=== PATIENT | female | born 1930 | race Caucasian/White ===

== ENCOUNTER 2016-12-13 22:54 | Emergency (ER) | payer OTHER ==
[~2016-12-13] VITALS: Ht 152.4 cm; Wt 39.9 kg
[~2016-12-13 22:54] MED LIST: AMLODIPINE BESY PO; CALCIUM + D 6001 TAB PO; CITALOPRAM20 MG PO; DONEPEZIL HCL10 MG PO; LOTREL 5 MG-101 CAP PO; MAGNESIUM OXID400 MG PO; MULTIVITAMIN1 TAB PO; NAMENDA XR21 MG PO; NAMENDA10 MG PO; VITAMIN C500 M3 PO
--- NOTE | 2016-12-13 23:03 | ED MVC/FALL/TRAUMA COMPLAINT ---
History of Present Illness General Chief Complaint: Fall Stated Complaint: BIBA FOR FALL Source: patient, old records, EMS Exam Limitations: dementia Vital Signs & Intake/Output Vital Signs & Intake/Output Vital Signs Date Time Temp Pulse Resp B/P Pulse O2 O2 Flow FiO2 Ox Delivery Rate 12/13 2313 100 Room Air 12/13 2302 97.0 58 18 118/60 100 Room Air ED Intake and Output 12/14 0000 12/13 1200 Intake Total 0 Output Total Balance 0 Intake, Oral 0 Patient 88 lb Weight Allergies Coded Allergies: NO KNOWN ALLERGIES (10/13/11) Reconcile Medications Amlodipine/Valsartan (Amlodipine-Valsartan 5-160 MG) 5 MG-160 MG TABLET 1 TAB PO DAILY BP (Reported) Calcium Carbonate/Vitamin D3 (Caltrate 600 + D Tablet) (Unknown Strength) TABLET (Unknown Dose) PO BID SUPPLEMENT (Reported) Citalopram Hydrobromide (Citalopram HBr) 10 MG TABLET 5 MG PO DAILY UNKNOWN ( Reported) Magnesium Oxide (Magnesium) 400 MG CAPSULE 1 CAP PO BID SUPPLEMENT (Reported) Mirtazapine 15 MG TABLET 1 TAB PO QHS UNKNOWN (Reported) Multivitamin (Multi-Day Vitamins) 1 EACH TABLET 1 TAB PO DAILY SUPPLEMENT ( Reported) Sennosides/Docusate Sodium (Senna S Tablet) 8.6 MG-50 MG TABLET 2 TAB PO DAILY GI (Reported) Trazodone HCl 50 MG TABLET 25 MG PO BID UNKNOWN (Reported) Trazodone HCl 50 MG TABLET 12.5 MG PO Q6H PRN AGITATION (Reported) Triage Nurses Notes Reviewed? yes Onset: Abrupt Duration: hour(s): (5), constant Timing: single episode today Severity: mild, moderate Severity Numbers: 5 Injuries/Fall Location: head, lower extremity Method of Injury: fall Loss of Consciousness: no loss of consciousness No Modifying Factors: none Associated Symptoms: DENIES HPI: 86-year-old female with history of dementia dysphasia, depression hypertension, chronic kidney disease presents after she had a witnessed fall at approximate 6: 30 this evening when the patient attempted to stand up out of her wheelchair falling for striking the right side of her head. Patient noted with bruising to her forehead and right knee. she is demented she offers no complaints. History is limited secondary to patient's dementia,W-10 was reviewed and primary history provider (ROXANNE ORTIZ) Past History Travel History Traveled to [place] past 21 day No Medical History Any Pertinent Medical History? see below for history Neurological: dementia EENT: NONE Cardiovascular: hypertension Respiratory: NONE Gastrointestinal: NONE Hepatic: NONE Renal: NONE Musculoskeletal: NONE Psychiatric: NONE Endocrine: NONE Blood Disorders: NONE Cancer(s): NONE SR. STRATEGIC SOURCING MANAGER/Reproductive: NONE History of MRSA: No History of VRE: No History of CDIFF: No Surgical History Surgical History: non-contributory Psychosocial History Who do you live with Family What is your primary language Telugu Family History Family History, If Any: FATHER (lung cancer). MOTHER (cad 68). Hx Contributory? No (ROXANNE ORTIZ) Review of Systems Review of Systems Constitutional: Reports: see HPI. All Other Systems: Reviewed and Negative Comments Review of systems: UNobtainable secondary patient dementia (ROXANNE ORTIZ) Physical Exam Physical Exam General Appearance: awake, cachetic Comments: Elderly female in no acute distress HEENT: Small hematoma ecchymosis noted over the right lateral forehead Normal EENT exam; PERRL, EOMI, no nystagmus. HEAD is atraumatic. moist mucous membranes. No facial swelling no raccoon eyes no mckay signs no hemotympanum Neck: Supple, normal range of motion Back: Nontender, no CVA tenderness. Full range of motion Cardiovascular: Regular rate and rhythms no murmurs rubs Respiratory: Chest nontender.There were no bony deformities, no asymmetry. No respiratory distress. Patient speaking in full complete sentences. Breath sounds clear to auscultation bilaterally: NO W/R/R Abdomen: Soft, nontender nondistended, no appreciable organomegaly Shoulder: Atraumatic/Stable. FROM . Elbow: Atraumatic/stable. FROM. No laxity Upper arm/Forearm: Atraumatic. Nontender. No edema, 5 out of 5 overedge sewer strength noted to bilateral upper extremities Hand/Wrist: Atraumatic/stable. Skin intact. FROM Pulses: Normal/equal radial pulses bilaterally. Brisk cap refill Hip/Pelvis: Atraumatic/Stable. FROM. No pain with pelvic compression no shortening or external rotation Knee: Small ecchymosis over the lateral right knee, the left knee is Atraumatic/ stable. FROM. No joint swelling, no effusion. No laxity. Negative aurelio/ anterior drawer test. No pain with ROM Leg: Atraumatic. Nontender. No edema, 5 out of 5 strength in the lower extremity, normal dorsiflexion of great toe bilaterally, gross sensation is intact, patellar tendon reflex 2+ bilaterally. Ankle/Foot: Atraumatic/stable. Skin intact. FROM. No swelling, no effusion. No laxity on exam Pulses: Normal/equal DP/PT pulses bilaterally. Brisk cap refill Neuro: Alert oriented x0, motor sensory normal, cranial nerves II through XII grossly intact. There were no obvious focal neurologic abnormalities. Skin: No appreciable rash on exposed skin, skin is warm and dry. Psych: Mood and affect is normal, memory and judgment is normal. Core Measures ACS in differential dx? No Severe Sepsis Present: No Septic Shock Present: No (ROXANNE ORTIZ) Progress Differential Diagnosis: abd injury, C/T/L spine injury, ext injury, ICH, pelvis injury, pnemothorax, spinal cord injury Plan of Care: Orders Procedure Date/time Status XRY-KNEE COMPLETE RIGHT 12/[address] HEAD WO IV CONTRAST 12/[address] CHEST WO IV CONTRAST 12/[address] CERV SPINE WO IV CONTRAST 12/[address] ABD & PELVIS W/O IV CONTRAS 12/13 2318 Active CAT scan x-rays ordered old records reviewed. Case was discussed with Dr. Aldridge who agrees with plan 100 case discussed with and signed out to dr aldridge pending ct and xrays (ROXANNE ORTIZ) Diagnostic Imaging: Viewed by Me: Radiology Read, CT Scan. Discussed w/RAD: Radiology Read, CT Scan. Hand-Off Endorsed To: BERNIE ALDRIDGE MD Endorsed Time: 99 Pending: CT, Xray (ROXANNE ORTIZ) Radiology Impression: PATIENT: SARAH THOMAS PRESENT AGE: 86 PATIENT ACCOUNT NO: [id number] : 32 LOCATION: [facility] ORDERING PHYSICIAN: ROXANNE PACE SERVICE DATE: 12/13/16 EXAM TYPE: CAT - CT CERV SPINE WO IV CONTRAST; CT HEAD WO IV CONTRAST EXAMINATION: CT HEAD AND CERVICAL SPINE. CLINICAL INFORMATION: Fall. Dementia. COMPARISON: CT head 2014. TECHNIQUE: Tank Shop Supervisor images were obtained. A CT acquisition of the head and cervical spine was performed without intravenous administration of contrast. Data was reformatted into multiplanar images at the acquisition workstation. DLP : 827.95 mGy-cm. FINDINGS: Head: There is no acute intracranial hemorrhage or abnormal extra-axial collection. No intracranial mass effect or midline shift. Lateral and third ventricles are prominent and there is proportionate prominence of the subarachnoid spaces reflecting a mild degree of global parenchymal volume loss. Ill-defined foci of hypoattenuation are visualized within the periventricular white matter most likely represent a chronic manifestation of small vessel ischemia. Escobar-white matter differentiation is grossly preserved and there is no evidence of acute territorial infarct. The calvarium and skull base are intact. Mastoid air cells and middle ear cavities are well aerated. Visualized paranasal sinuses are well-aerated. Cervical spine: There is slight anterolisthesis of C4 on C5 and slight anterolisthesis of C7 on T1 related to advanced facet degenerative changes at these 2 levels. Vertebral alignment is otherwise maintained in the sagittal dimension. There is loss of intervertebral disc height with associated sclerotic degenerative endplate changes and disc osteophyte spurring at C5-C6 and C6-C7. There is no evidence of bony canal compromise. Uncovertebral joint hypertrophy and facet degenerative change causes moderate right and mild left neuroforaminal encroachment at C6-C7. IMPRESSION: Head: There is global parenchymal volume loss and chronic small ischemic changes within the periventricular white matter. No evidence of acute territorial infarct or hemorrhage. Cervical spine: No acute cervical spine fracture. Grossly no evidence of bony canal compromise. Moderate right and mild left neuroforaminal encroachment at C6-C7 related to multifactorial degenerative changes at this level. DICTATED BY: ANDREA ARREGUIN MD DATE/TIME DICTATED:10/01 ECONOMETRICIAN:GERI DATE/TIME TRANSCRIBED:12/14/1655 CONFIDENTIAL, DO NOT COPY WITHOUT APPROPRIATE AUTHORIZATION. <Electronically signed in Other Vendor System> SIGNED BY: ANDREA ARREGUIN MD 12/14/16108, PATIENT: SARAH THOMAS PRESENT AGE: 86 PATIENT ACCOUNT NO: [id number] : 32 LOCATION: [facility] ORDERING PHYSICIAN: ROXANNE PACE SERVICE DATE: 12/13/16 EXAM TYPE: CAT - CT ABD & PELVIS W/O IV CONTRAS; CT CHEST WO IV CONTRAST EXAMINATION: CT SCAN OF THE CHEST ABDOMEN AND PELVIS. CLINICAL INFORMATION: Fall. Trauma. Dimension. COMPARISON: CT scan of the abdomen and pelvis 08/07/2009. TECHNIQUE: Tank Shop Supervisor images were obtained. CT acquisition of the chest abdomen and pelvis was performed without intravenous administration of contrast. Data was reformatted into multiplanar images at the acquisition workstation. DLP: 328.39 mGy-cm. FINDINGS: Chest: The ascending aorta is enlarged measuring 4.0 cm in transaxial dimension. There are scattered atheromatous calcifications involving the aortic arch apex and the origins of the major aortic branches. The heart size is normal. No pericardial effusion. There is no consolidative disease or pleural effusion. No pneumothorax. The chest wall is intact. The trachea and major airways are patent. The visualized portions of the thoracic outlet including the thyroid gland are unremarkable. There is no acute osseous finding. Specifically no acute rib fracture. Abdomen and pelvis: Liver attenuation is homogeneous with no evidence of a discrete lesion. The spleen and pancreas are normal. There is a peripherally calcified calculus layering within the gallbladder fundus. Adrenal glands are normal. Kidneys are symmetric and there is no nephrolithiasis. No worrisome perinephric inflammation or collection. There is no abnormal mass or calculus along the expected course of the right or left ureter. The stomach and small bowel are unremarkable. The appendix is not definitively visualized however there are no abnormal inflammatory changes within the right lower quadrant to suggest the presence of acute appendicitis. A large volume of stool distends the rectum to a diameter of 8.0 cm. There is no pelvic fluid. No free intraperitoneal air. No worrisome mesenteric or intraperitoneal adenopathy. Heavily calcified atheromatous plaque involves the abdominal aorta and iliac vessels. The infrarenal inferior vena cava is unremarkable. 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 There is a pseudoarticulation between the right L5 transverse process and sacrum. Advanced degenerative spondylosis at L4-L5. Vertebral body heights are preserved. No evidence of acute fracture. Sacroiliac joints are symmetric. There is an intraosseous hemangioma involving the T9 vertebral body. IMPRESSION: The diagnostic accuracy of this examination is limited due to the absence of intravenous contrast. There are chronic changes as described above. No acute fracture or hematoma. DICTATED BY: KALLIE CARDONAANDREA DATE/TIME DICTATED:10/01 ECONOMETRICIAN:GERI DATE/TIME TRANSCRIBED:12/14/16107 CONFIDENTIAL, DO NOT COPY WITHOUT APPROPRIATE AUTHORIZATION. <Electronically signed in Other Vendor System> SIGNED BY: ANDREA ARREGUIN MD 12/14/16 0130 Comments: 12/14/2016 1:57:37 AM patient signed out to me by PA at shift change management consultant. CAT scan without acute changes. (SAMANTHA CARDONA,BERNIE White) Departure Departure Condition: Stable Referrals: YAZMIN CARDONA,GREG Bates Departure Forms: Customer Survey General Discharge Information (ROXANNE ORTIZ) Departure Disposition: HOME OR SELF CARE Clinical Impression Primary Impression: Minor head injury Qualifiers: Encounter type: initial encounter Qualified Code: S00.90XA - Unspecified superficial injury of unspecified part of head, initial encounter Secondary Impressions: Degenerative disc disease, cervical Fall Qualifiers: Encounter type: initial encounter Qualified Code: W19.XXXA - Unspecified fall, initial encounter Additional Instructions: Please refer to W 10 (SAMANTHA CARDONA,BERNIE White)
[2016-12-13] MEDS ORDERED: AMLODIPINE-VAL1 EACH PO (23:22)
[2016-12-13] MEDS ORDERED: MIRTAZAPINE15 M2 PO (23:23)
[2016-12-13] MEDS ORDERED: MULTI-DAY VITA1 EACH PO (23:23)
[2016-12-13] MEDS ORDERED: TRAZODONE HCL50 M1 PO ×2 (23:24→23:46)
[2016-12-13] MEDS ORDERED: CITALOPRAM HBR10 MG PO (23:25)
[2016-12-13] MEDS ORDERED: MAGNESIUM400 M1 PO (23:27)
[2016-12-13] MEDS ORDERED: CALTRATE 600 +1 EACH PO (23:44)
[2016-12-13] MEDS ORDERED: SENNA S TABLET1 EACH PO (23:45)
--- NOTE | 2016-12-14 01:09 | CT SCAN REPORT ---
EXAMINATION: CT HEAD AND CERVICAL SPINE. CLINICAL INFORMATION: Fall. Dementia. COMPARISON: CT head 11/05/2014. TECHNIQUE: Business Reporter images were obtained. A CT acquisition of the head and cervical spine was performed without intravenous administration of contrast. Data was reformatted into multiplanar images at the acquisition workstation. DLP: 827.95 mGy-cm. FINDINGS: Head: There is no acute intracranial hemorrhage or abnormal extra-axial collection. No intracranial mass effect or midline shift. Lateral and third ventricles are prominent and there is proportionate prominence of the subarachnoid spaces reflecting a mild degree of global parenchymal volume loss. Ill-defined foci of hypoattenuation are visualized within the periventricular white matter most likely represent a chronic manifestation of small vessel ischemia. Escobar-white matter differentiation is grossly preserved and there is no evidence of acute territorial infarct. The calvarium and skull base are intact. Mastoid air cells and middle ear cavities are well aerated. Visualized paranasal sinuses are well-aerated. Cervical spine: There is slight anterolisthesis of C4 on C5 and slight anterolisthesis of C7 on T1 related to advanced facet degenerative changes at these 2 levels. Vertebral alignment is otherwise maintained in the sagittal dimension. There is loss of intervertebral disc height with associated sclerotic degenerative endplate changes and disc osteophyte spurring at C5-C6 and C6-C7. There is no evidence of bony canal compromise. Uncovertebral joint hypertrophy and facet degenerative change causes moderate right and mild left neuroforaminal encroachment at C6-C7. IMPRESSION: Head: There is global parenchymal volume loss and chronic small ischemic changes within the periventricular white matter. No evidence of acute territorial infarct or hemorrhage. Cervical spine: No acute cervical spine fracture. Grossly no evidence of bony canal compromise. Moderate right and mild left neuroforaminal encroachment at C6-C7 related to multifactorial degenerative changes at this level.
--- NOTE | 2016-12-14 01:30 | CT SCAN REPORT ---
EXAMINATION: CT SCAN OF THE CHEST ABDOMEN AND PELVIS. CLINICAL INFORMATION: Fall. Trauma. Dimension. COMPARISON: CT scan of the abdomen and pelvis 08/07/2009. TECHNIQUE: Production Tester images were obtained. CT acquisition of the chest abdomen and pelvis was performed without intravenous administration of contrast. Data was reformatted into multiplanar images at the acquisition workstation. DLP: 328.39 mGy-cm. FINDINGS: Chest: The ascending aorta is enlarged measuring 4.0 cm in transaxial dimension. There are scattered atheromatous calcifications involving the aortic arch apex and the origins of the major aortic branches. The heart size is normal. No pericardial effusion. There is no consolidative disease or pleural effusion. No pneumothorax. The chest wall is intact. The trachea and major airways are patent. The visualized portions of the thoracic outlet including the thyroid gland are unremarkable. There is no acute osseous finding. Specifically no acute rib fracture. Abdomen and pelvis: Liver attenuation is homogeneous with no evidence of a discrete lesion. The spleen and pancreas are normal. There is a peripherally calcified calculus layering within the gallbladder fundus. Adrenal glands are normal. Kidneys are symmetric and there is no nephrolithiasis. No worrisome perinephric inflammation or collection. There is no abnormal mass or calculus along the expected course of the right or left ureter. The stomach and small bowel are unremarkable. The appendix is not definitively visualized however there are no abnormal inflammatory changes within the right lower quadrant to suggest the presence of acute appendicitis. A large volume of stool distends the rectum to a diameter of 8.0 cm. There is no pelvic fluid. No free intraperitoneal air. No worrisome mesenteric or intraperitoneal adenopathy. Heavily calcified atheromatous plaque involves the abdominal aorta and iliac vessels. The infrarenal inferior vena cava is unremarkable. 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 There is a pseudoarticulation between the right L5 transverse process and sacrum. Advanced degenerative spondylosis at L4-L5. Vertebral body heights are preserved. No evidence of acute fracture. Sacroiliac joints are symmetric. There is an intraosseous hemangioma involving the T9 vertebral body. IMPRESSION: The diagnostic accuracy of this examination is limited due to the absence of intravenous contrast. There are chronic changes as described above. No acute fracture or hematoma.
[2016-12-14 01:59] VITALS: BP 109/58
== END 2016-12-14 02:19 ==
LOC: ERH 22:54
DX: S09.90XA Unspecified injury of head, initial encounter (principal); M50.323 Other cervical disc degeneration at C6-C7 level; W05.0XXA Fall from non-moving wheelchair, initial encounter; Y93.89 Activity, other specified; Y92.9 Unspecified place or not applicable
CPT/HCPCS: 74176